=== PATIENT | female | born 1955 | race Caucasian/White ===

== ENCOUNTER 2016-07-05 12:21 | Emergency (ER) | payer OTHER ==
[~2016-07-05] VITALS: Wt 61.0 kg
[2016-07-05] MEDS ORDERED: FAMOTIDINE 20 MG INJ IV STA (14:03)
[2016-07-05] MEDS ORDERED: ONDANSETRON 4 MG INJ IV STA (14:03)
[2016-07-05] MEDS ORDERED: SOD CHLORIDE 0.9% 1,000 ML IV STA (14:03)
[2016-07-05 14:28] LABS: ADD SCAN DIFF NO
[2016-07-05 14:30] LABS: BASOPHILS % 0.6 % (0.0-2.0); HEMATOCRIT 42.3 % (37.0-47.0); HEMOGLOBIN 14.6 g/dl (12.0-16.0); LYMPHOCYTES # 1.1 10^3/ul (0.8-2.9); LYMPHOCYTES % 21.5 % (15.0-51.0); MEAN CORPUSCULAR HEMOGLOBIN 31.3 pg (29.0-33.0); MEAN CORPUSCULAR HGB CONC 34.5 g/dl (32.0-37.0); MEAN CORPUSCULAR VOLUME 90.8 fl (82.0-101.0); MEAN PLATELET VOLUME 10.7 fl (7.4-10.4); MONOCYTE # 0.7 10^3/ul (0.3-0.9); MONOCYTES % 13.3 % (0.0-11.0); NEUTROPHIL # 3.1 10^3/ul (1.6-7.5); NEUTROPHILS % 64.2 % (39.0-77.0); PLATELET COUNT 255 10^3/UL (140-415); RED BLOOD COUNT 4.66 10^6/ul (4.20-5.40); WHITE BLOOD COUNT 4.9 10^3/ul (4.8-10.8)
--- NOTE | 2016-07-05 14:35 | RADRPT ---
PROCEDURE: Chest x-ray CLINICAL INDICATION: Abdominal pain TECHNIQUE: Chest single view COMPARISON: None FINDINGS: The heart is normal in size. The pulmonary vessels are normal in caliber. The lungs are clear. Th e costophrenic angles are sharp. The visualized bony thorax is unremarkable. IMPRESSION: No acute cardiopulmonary disease. RPTAT: HH .Darnell Dickerson MD, Date Time Electronically viewed and signed by .Darnell Dickerson MD, MD on 07/05/2016 14:35 .W/
[2016-07-05 14:41] LABS: ALBUMIN 4.2 g/dl (3.3-4.9)
[2016-07-05 14:42] LABS: POTASSIUM 4.7 mmol/L (3.5-5.1)
[2016-07-05 14:44] LABS: ALBUMIN/GLOBULIN RATIO 1.23; BILIRUBIN,INDIRECT 0.3 mg/dl (0-1.1); BILIRUBIN,TOTAL 0.3 mg/dl (0.2-1.3); CALCIUM 9.1 mg/dl (8.4-10.2); CREATININE 0.83 mg/dl (0.44-1.00); TOTAL PROTEIN 7.6 g/dl (6.1-8.1)
[2016-07-05 15:12] LABS: ADD UMIC YES; URINE BILIRUBIN (Dip) NEGATIVE (NEGATIVE); URINE BLOOD (Dip) TRACE (NEGATIVE); URINE COLOR LT. YELLOW (YELLOW); URINE GLUCOSE (Dip) NEGATIVE (NEGATIVE); URINE KETONES (Dip) TRACE (NEGATIVE); URINE LEUKOCYTE ESTERASE (Dip) NEGATIVE (NEGATIVE); URINE NITRITE (Dip) NEGATIVE (NEGATIVE); URINE TOTAL PROTEIN (Dip) NEGATIVE (NEGATIVE); URINE UROBILINOGEN (Dip) 0.2 E.U./dL (0.1-1.0)
[2016-07-05 15:23] LABS: BACTERIA,URINE FEW; URINE RBCS 0-2 /HPF (0)
[2016-07-05] MEDS ORDERED: MECLIZINE 12.5 MG TAB PO ONE (15:30)
[2016-07-05] MEDS ORDERED: GUAIFENESIN/DM 5ML CUP PO ONE (15:30)
--- NOTE | 2016-07-05 15:34 | ERD ---
ER Documentation Chief Complaint Date/Time DATE: 07/05/16 TIME: 15:31 Chief Complaint HEADACHE WITH COUGH AND CONGESTION WITH AP AND NAUSEA AND VOMITING HPI This is a 61-year-old female who presents to the emergency room for evaluation of a headache, nasal congestion, cough, body aches, and frequent urination for the past 3 days. This patient is here with her daughter who states the patient has been stressed recently and has been in the hospital due to the fact that her family member is sick. This patient has not had any fevers at home and came to the ER today for evaluation. She denies coughing up any phlegm. ROS All systems reviewed and are negative except as per history of present illness. PMhx/Soc Medical and Surgical Hx: pt denies Medical Hx History of Surgery: Yes (bunnion hysterectomy) Anesthesia Reaction: No Hx Neurological Disorder: No Hx Respiratory Disorders: No Hx Cardiac Disorders: No Hx Psychiatric Problems: No Hx Miscellaneous Medical Probl: No Hx Alcohol Use: No Hx Substance Use: No Hx Tobacco Use: No Smoking Status: Never smoker Physical Exam Vitals Vital Signs Date Time Temp Pulse Resp B/P Pulse Ox O2 Delivery O2 Flow Rate FiO2 07/05/16 12:26 99.9 105 22 129/72 98 Physical Exam INITIAL VITAL SIGNS: Reviewed by me GENERAL: The patient is well developed and appropriate for usual state of health in no apparent distress HEENT: Pupils equal, round, and reactive to light. EOMI. There is no scleral icterus. NECK: C-spine is soft and supple, there is no meningismus. There is no cervical lymphadenopathy. LUNGS: Clear to auscultation bilaterally. There are no rales, wheezes or rhonchi. HEART: Regular rate and rhythm, no murmurs, clicks, rubs or gallops. ABDOMEN: Soft, non-tender, non-distended. There are bowel sounds in all four quadrants. No rebound or guarding. EXTREMITIES: There is no peripheral cyanosis or edema. No focal swelling or erythema. NEUROLOGICAL: The patient moves all four extremities with 5/5 strength. Cranial nerves II - XII are intact. Normal gait. Alert and oriented SKIN: There is no apparent rash or petechiae. HEME/LYMPHATIC: There is no evidence of excessive bruising or lymphedema. PSYCHIATRIC: The patient does not appear anxious or depressed. Result Diagram: 07/05/16 1415 07/05/16 1415 Results 24 hrs Laboratory Tests Test 07/05/16 14:15 07/05/16 15:05 Alanine Aminotransferase (ALT/SGPT) 26IU/L Albumin 4.2g/dl Albumin/Globulin Ratio 1.23 Alkaline Phosphatase 93IU/L Anion Gap 18 Aspartate Amino Transf (AST/SGOT) 28IU/L Basophils # 0.010^3/ul Basophils % 0.6% Blood Urea Nitrogen 16mg/dl Calcium Level 9.1mg/dl Carbon Dioxide Level 25mmol/L Chloride Level 102mmol/L Creatinine 0.83mg/dl Direct Bilirubin 0.00mg/dl Eosinophils # 0.010^3/ul Eosinophils % 0.0% Globulin 3.40g/dl Glucose Level 94mg/dl Hematocrit 42.3% Hemoglobin 14.6g/dl Indirect Bilirubin 0.3mg/dl Lipase 156U/L Lymphocytes # 1.110^3/ul Lymphocytes % 21.5% Mean Corpuscular Hemoglobin 31.3pg Mean Corpuscular Hemoglobin Concent 34.5g/dl Mean Corpuscular Volume 90.8fl Mean Platelet Volume 10.7fl Monocytes # 0.710^3/ul Monocytes % 13.3% Neutrophils # 3.110^3/ul Neutrophils % 64.2% Nucleated Red Blood Cells # 0.010^3/ul Nucleated Red Blood Cells % 0.0/100WBC Platelet Count 10293^3/UL Potassium Level 4.7mmol/L Red Blood Count 4.6610^6/ul Red Cell Distribution Width 13.0% Sodium Level 140mmol/L Total Bilirubin 0.3mg/dl Total Protein 7.6g/dl White Blood Count 4.910^3/ul Urine Bacteria FEW Urine Bilirubin NEGATIVE Urine Clarity CLEAR Urine Color LT. YELLOW Urine Epithelial Cells FEW Urine Glucose NEGATIVE% Urine Hemoglobin TRACE Urine Ketones TRACE Urine Leukocyte Esterase NEGATIVE Urine Microscopic RBC 0-2/HPF Urine Microscopic WBC 0-2/HPF Urine Nitrite NEGATIVE Urine Specific [place] 1.010 Urine Total Protein NEGATIVE Urine Urobilinogen 0.2 E.U./dL Urine pH 6.0 Current Medications Medications (Trade) Dose Ordered Sig/Leon Route PRN Reason Start Time Stop Time Status Last Admin Dose Admin Sodium Chloride (NS) 1,000 ml @ 1,000 mls/hr Q1H STAT IV 07/05/16 14:03 07/05/16 15:02 DC 07/05/16 14:40 Ondansetron HCl (Zofran Inj) 4 mg ONCE STAT IV 07/05/16 14:03 07/05/16 14:05 DC 07/05/16 14:40 Famotidine (Pepcid Iv) 20 mg ONCE STAT IV 07/05/16 14:03 07/05/16 14:05 DC 07/05/16 14:40 Procedures/MDM Chest X-ray 1V Interpreted by me: Soft Tissue: No acute abnormalities Bones: No acute abnormalities Mediastinum/Cardiac Silhouette/Lungs: [No acute abnormalities] This 61-year-old female presents to the ER for evaluation of bilateral nasal congestion, cough, and generalized weakness. And also frequent urination. This patient had lab work drawn including a chest x-ray all of which is normal. Urinalysis does not reveal any bacteria. Urine culture was obtained. I did advise this patient has sometimes urinalysis will not be the bacteria that would go along a urine culture. This patient was given Robitussin and meclizine here in the emergency room for cough and dizziness. The patient will be discharged home with a prescription for Robitussin, and ciprofloxacin to take over the course of the next 3 days. Departure Diagnosis: Primary Impression: Frequent urination Additional Impressions: Multiple complaints Viral syndrome Condition: Stable MARTINA MARIE DO Jul 05, 2016 15:33
[2016-07-05] MEDS ORDERED: UDROBDM PO (15:36)
[2016-07-05] MEDS ORDERED: CIPR500T4 PO (15:36)
[2016-07-05 16:06] VITALS: BP 132/86; PULSE 95; RESP 22; TEMP 99.4
== END 2016-07-05 16:07 | disposition home or self-care (01) ==
LOC: E/R 12:21
DX: R35.0 Frequency of micturition (principal); B34.9 Viral infection, unspecified; R09.81 Nasal congestion; R05 Cough
CPT/HCPCS: 36415; 71010; 80053; 81001; 83690; 85025; 87086; 96374; 96375; J2405; J7030; Z7502; Z7610; 81003

== ENCOUNTER 2017-09-30 13:17 | Emergency (ER) | END 2017-09-30 15:45 | disposition home or self-care (01) ==